=== PATIENT | male | born 1935 | race Two or more races ===

== ENCOUNTER 2021-05-13 12:57 | Emergency (ER) | payer BC, MEDICARE, OTHER ==
[~2021-05-13] VITALS: Ht 175.3 cm; Wt 72.6 kg
[~2021-05-13 12:57] MED LIST: LEVO25TA9
[2021-05-13 13:14] VITALS: BP 115/70
[2021-05-13] MEDS ORDERED: CEPH-509 PO (14:02)
[2021-05-13] MEDS ORDERED: TETANUS-DIPTH-ACEL PERTUSSIS 0.5ML SYR Tdap IM ONE (14:15)
== END 2021-05-13 14:11 | disposition home or self-care (01) ==
LOC: ER 12:57
DX: S71.112A Laceration without foreign body, left thigh, initial encounter (principal); I10 Essential (primary) hypertension; W26.8XXA Contact with other sharp object(s), not elsewhere classified, initial encounter; Y93.89 Activity, other specified; Y92.89 Other specified places as the place of occurrence of the external cause; Y99.8 Other external cause status
CPT/HCPCS: 12032; 90471; 90715; 99284; J2001

== ENCOUNTER 2021-05-22 09:03 | Emergency (ER) | payer MEDICARE ==
[~2021-05-22] VITALS: Ht 172.7 cm; Wt 63.5 kg
[~2021-05-22 09:03] MED LIST changes: +CEPH-509 PO
[2021-05-22 09:26] VITALS: BP 123/66
[2021-05-22] MEDS ORDERED: CEPH500C PO (09:27)
== END 2021-05-22 09:43 | disposition home or self-care (01) ==
LOC: ER 09:03
DX: S71.112D Laceration without foreign body, left thigh, subsequent encounter (principal); I10 Essential (primary) hypertension; E03.9 Hypothyroidism, unspecified; Z79.899 Other long term (current) drug therapy; W26.8XXD Contact with other sharp object(s), not elsewhere classified, subsequent encounter

== ENCOUNTER 2025-01-23 08:29 | Emergency (ER) | payer MEDICARE ==
[~2025-01-23] VITALS: Ht 170.2 cm; Wt 71.5 kg
[~2025-01-23 08:29] MED LIST changes: +CEPH500C PO
--- NOTE | 2025-01-23 09:06 | ED.PDOC ---
General HPI Comments A 89 YEAR OLD MALE PRESENTS TO THE ED WITH COMPLAINT OF PENILE IRRITATION. PATIENT STATES HE HAS BEEN EXPERIENCING PENILE IRRITATION AND REDNESS FOR THE PAST 2 DAYS. PATIENT NOTES THAT HE IS UNCIRCUMCISED. PATIENT DENIES DYSURIA, HEMATURIA, PENILE DISCHARGE, FEVER, CHILLS, SHORTNESS OF BREATH, CHEST PAIN, ABDOMINAL PAIN, NAUSEA, VOMITING, HEADACHE, OR OTHER COMPLAINTS. NO OTHER SYMPTOMS OR MODIFYING FACTORS AT THIS TIME. PATIENT IS ALERT, ORIENTED X 4, AND HAS STEADY GAIT. Chief Complaint: Penile Problem Time Seen by MD: 08:43 Primary Care Provider: RUBEN Reviewed notes: Nurses Notes, Medications, Allergies Allergies: Coded Allergies: NO KNOWN ALLERGIES (Unverified , 01/19/11) Home Meds Active Scripts Cephalexin Monohydrate (Cephalexin) 500 Mg Cap, 1 CAP PO TID, #30 CAP Prov:MARIBEL FRIAS 01/23/25 Ketoconazole (Ketoconazole) 2 % Cre, 1 APPLIC TOP BID, #30 GRAMS Prov:MARIBEL FRIAS 01/23/25 Cephalexin Monohydrate (Cephalexin) 500 Mg Cap, 1 CAP PO QID for 7 Days, #28 CAP Prov:MARIBEL FRIAS 05/22/21 Cephalexin (KEFLEX 500) 500 Mg Cap, 1 CAP PO TID, #30 CAP Prov:MARIBEL FRIAS 05/13/21 Reported Medications Levothyroxine Sodium (Levothroid) 25 Mcg Tab, DAILY 01/19/11 Information Source: Patient Mode of Arrival: Ambulatory Severity: Mild Timing: Days Duration: Since onset, Days Prehospital treatment: None Onset: Spontaneous Symptoms: Other (PENILE IRRITATION) History of: None Location: None Penile discharge: None Modifying factors: None associated signs and symptoms: None Past Medical History PAST MEDICAL HISTORY: HTN, Thyroid Surgical History: Denies all surgeries Family History Family History: Reviewed,noncontributory to illness Social History Smoker: Non-Smoker Alcohol: Denies ETOH Use Drugs: Denies Drug Use Lives In: Home Constitutional: denies: chills, diaphoresis, fatigue, fever, malaise, sweats, weakness, others EENTM: denies: blurred vision, double vision, ear bleeding, ear discharge, ear drainage, ear pain, ear ringing, eye pain, eye redness, hearing loss, mouth pain, mouth swelling, nasal discharge, nose bleeding, nose congestion, nose pain, photophobia, tearing, throat pain, throat swelling, voice changes, others Respiratory: denies: cough, hemoptysis, orthopnea, SOB at rest, shortness of breath, SOB with excertion, stridor, wheezing, others Cardiovascular: denies: chest pain, dizzy spells, diaphoresis, Dyspnea on exertion, edema, irregular heart beat, left arm pain, lightheadedness, palpitations, PND, syncope, others Gastrointestinal: denies: abdomen distended, abdominal pain, blood streaked bowels, constipated, diarrhea, dysphagia, difficulty swallowing, hematemesis, melena, nausea, poor appetite, poor fluid intake, rectal bleeding, rectal pain, vomiting, others Genitourinary: reports: penile sore, others (PENILE IRRITATION AND REDNESS); denies: burning, dysuria, flank pain, frequency, hematuria, incontinence, penile discharge, pain, testicle pain, testicle swelling, urgency Neurological: denies: dizziness, fainting, headache, left sided numbness, left sided weakness, numbness, paresthesia, pre-existing deficit, right sided numbness, right sided weakness, seizure, speech problems, tingling, tremors, weakness, others Musculoskeletal: denies: back pain, gout, joint pain, joint swelling, muscle pain, muscle stiffness, neck pain, others Integumetry: denies: bruises, change in color, change in hair/nails, dryness, laceration, lesions, lumps, rash, wounds, others Allergic/Immunocompromised: denies: Difficulty Healing, Frequent Infections, Hives, Itching, others Hematologic/Lymphatic: denies: anemia, blood clots, easy bleeding, easy bruising, swollen glands, others Endocrine: denies: excessive hunger, excessive sweating, excessive thirst, excessive urination, flushing, intolerance to cold, intolerance to heat, unexplained weight gain, unexplained weight loss, others Psychiatric: denies: anxiety, bipolar disorder, depression, hopeless, panic disorder, schizophrenia, sleepless, suicidal, others All Other Systems: Reviewed and Negative Physical Exam General Appearance: No Apparent Distress, Normal HEENT: Normal ENT Inspection, PERRL/EOMI, Pharynx Normal, TMs Normal Neck: Full Range of Motion, Non-Tender, Normal, Normal Inspection Respiratory: Chest Non-Tender, Lungs Clear, No Accessory Muscle Use, No Respiratory Distress, Normal Breath Sounds Cardiovascular: No Edema, No JVD, No Murmur, No Gallop, Normal Peripheral Pulses, Regular Rate/Rhythm Breast Exam: Deferred Gastrointestinal: No Organomegaly, Non Tender, No Pulsatile Mass, Normal Bowel Sounds, Soft Genitalia: Penis (UNCIRCUMCISED PENIS WITH LOCALIZED REDNESS AND WHITE SKIN RASH, NO DISCHARGE AND TENDERNESS, +BALANITIS. ) Pelvic: Deferred Rectal: Deferred Extremities: No calf tenderness, Normal capillary refill, Normal inspection, Normal range of motion, Non-tender, No pedal edema Musculoskeletal : Apperance: Normal Neurologic: Alert, full roll inspector II-XII nml as Tested, No Motor Deficits, Normal Affect, Normal Mood, No Sensory Deficits Cerebellar Function: Normal Reflexes: Normal Skin: Dry, Normal Color, Warm Peripheral Pulses: 2+ carotid (R), 2+ carotid (L), 2+ dorsalis pedis (R), 2+ dorsalis pedis (L) Lymphatic: No Adenopathy Was a procedure done? Was a procedure done?: No Differential Diagnosis Kidney stone (Female): N/A Kidney stone (Male): N/A Penile/Scrotal: Other (BALANITIS, PENILE IRRITATION) Urinary Problem (Male): N/A Urinary Problem (Female): N/A X-Ray, Labs, Meds, VS Vital Signs Date Time Temp Pulse Resp B/P (MAP) Pulse Ox O2 Delivery O2 Flow Rate FiO2 01/23/25 09:08 73 14 97 Room Air 01/23/25 09:08 97.6 73 14 130/81 (97) 97 97.6 01/23/25 08:30 97.6 73 14 130/81 97 97.6 X-Ray, Labs, Meds, VS Comment EXTERNAL MEDICAL RECORDS REVIEWED: [NONE] INDEPENDENT HISTORIANS: [NONE] SOCIAL DETERMINANTS OF HEALTH: [NONE] LABS ORDERED: NONE REVIEWED AND INTERPRETED RESULTS: NONE IMAGING ORDERED: NONE TREATMENTS ORDERED: NONE PROCEDURES PERFORMED: NONE CRITICAL CARE TIME: NONE I HAVE DISCUSSED THE PATIENT WITH THE ATTENDING PHYSICIAN DR. MACHADO AND HE AGREES WITH THE PATIENT'S PLAN OF CARE AND DISPOSITION. BASED ON HISTORY OF PRESENT ILLNESS, AND PHYSICAL EXAM, PATIENT WILL BE DISCHARGED HOME. DISCUSSED PLAN FOR DISCHARGE HOME WITH RX [KEFLEX AND NIZORAL CREAM]. MEDICATION WARNINGS GIVEN. SHARED DECISION MAKING: PATIENT INSTRUCTED TO FOLLOW UP WITH PRIMARY CARE PROVIDER IN 1-2 DAYS FOR RE-EVALUATION OF SYMPTOMS. PATIENT VERBALIZES UNDERSTANDING TO RETURN TO ED FOR NEW OR WORSENING SYMPTOMS OR IF FOLLOW UP WITH PCP CANNOT BE OBTAINED. PATIENT FEELS COMFORTABLE GOING HOME AT THIS TIME. ALL QUESTIONS ADDRESSED AT TIME OF DISCHARGE. Time of 1ST Reevaluation: 09:38 Reevaluation 1ST: Improved Patient Education/Counseling: Diagnosis, Treatment, Need For Follow Up Family Education/Counseling: Diagnosis, Treatment, Need For Follow Up Medical Screening: No EMC Exist At This Time SEPSIS Sepsis Screen Date sepsis recognized/suspect: Jan 23, 2025 Time Sepsis recognized/suspect: 0834 Recent Procedure: No On Antibiotic Therapy: No Respiratory Rate >20: No Heart Rate >90: No Temp<36 C (96.8 F) or >38.3 C: No SBP <90 or MAP <65 mmHG: No New Acute Mental Status Change: No Is the patient on CPAP, BIPAP,: No Vital Signs Date Time Temp Pulse Resp B/P (MAP) Pulse Ox O2 Delivery O2 Flow Rate FiO2 01/23/25 09:08 73 14 97 Room Air 01/23/25 09:08 97.6 73 14 130/81 (97) 97 97.6 01/23/25 08:30 97.6 73 14 130/81 97 97.6 Departure 1 Departure Time of Disposition: 09:38 Impression: Primary Impression: Candidal balanitis Disposition: 01 HOME / SELF CARE / HOMELESS Condition: Stable Additional Instructions: FOLLOW-UP WITH PCP IN 1 TO 2 DAYS. TAKE MEDICATIONS PRESCRIBED. RETURN TO ED FOR ANY NEW OR WORSENING SYMPTOMS. e-Prescriptions Cephalexin Monohydrate (Cephalexin) 500 Mg Cap 1 CAP PO TID, #30 CAP Prov: MARIBEL FRIAS 01/23/25 Ketoconazole (Ketoconazole) 2 % Cre 1 APPLIC TOP BID, #30 GRAMS Prov: MARIBEL FRIAS 01/23/25 Discharged With: Self Critical Care Note Critical Care Time?: No Stability Stability form required: No I personally scribed for MARIBEL FRIAS ([email or web address]) on 01/23/25 at 09:06. Electronically submitted by John Morgan ([email or web address]). MARIBEL FRIAS Jan 23, 2025 09:06
[2025-01-23 09:08] VITALS: BP 130/81; PULSE 73; RESP 14; TEMP 97.6; O2SAT 97
[2025-01-23] MEDS ORDERED: CEPH500C PO (09:08)
[2025-01-23] MEDS ORDERED: KETO2CRE4 TOP (09:08)
== END 2025-01-23 09:12 | disposition home or self-care (01) ==
LOC: ER 08:29
DX: B37.42 Candidal balanitis (principal); I10 Essential (primary) hypertension; Z79.899 Other long term (current) drug therapy; Z79.890 Hormone replacement therapy

== ENCOUNTER 2025-02-07 08:42 | Emergency (ER) | payer MEDICARE ==
[~2025-02-07] VITALS: Ht 165.1 cm; Wt 69.4 kg
[~2025-02-07 08:42] MED LIST changes: +KETO2CRE4 TOP
[2025-02-07 09:25] VITALS: BP 141/70; PULSE 77; RESP 16; TEMP 98.1; O2SAT 98
[2025-02-07] MEDS ORDERED: TRIA0.02 TOP (09:30)
--- NOTE | 2025-02-07 09:32 | ED.PDOC ---
History of Present Illness(SKN HPI Comments A 89 YEAR OLD MALE PRESENTS TO THE ED WITH COMPLAINT OF RASH OF BILATERAL INNER THIGHS. PATIENT STATES HE HAS BEEN EXPERIENCING A RASH IN HIS BILATERAL INNER THIGHS FOR THE PAST 2.5 WEEKS. PATIENT REPORTS THIS RASH OCCASIONALLY ITCHES, BUT NOT TOO OFTEN. PATIENT DENIES FEVER, CHILLS, SHORTNESS OF BREATH, CHEST PAIN, ABDOMINAL PAIN, NAUSEA, VOMITING, HEADACHE, OR OTHER COMPLAINTS. NO OTHER SYMPTOMS OR MODIFYING FACTORS AT THIS TIME. PATIENT IS ALERT, ORIENTED X 4, AND HAS STEADY GAIT. Chief Complaint: Rash Time Seen by MD: 08:50 Primary Care Provider: RUBEN History of Present Illness: Nurses Notes, Medications, Allergies Allergies: Coded Allergies: NO KNOWN ALLERGIES (Unverified , 01/19/11) Home Meds Active Scripts Triamcinolone Acetonide (Triamcinolone Acetonide) 0.025 % Cre, 1 APPLIC TOP BID, #60 GRAMS Prov:MARIBEL FRIAS 02/07/25 Cephalexin Monohydrate (Cephalexin) 500 Mg Cap, 1 CAP PO TID, #30 CAP Prov:MARIBEL FRIAS 01/23/25 Ketoconazole (Ketoconazole) 2 % Cre, 1 APPLIC TOP BID, #30 GRAMS Prov:MARIBEL FRIAS 01/23/25 Cephalexin Monohydrate (Cephalexin) 500 Mg Cap, 1 CAP PO QID for 7 Days, #28 CAP Prov:MARIBEL FRIAS 05/22/21 Cephalexin (KEFLEX 500) 500 Mg Cap, 1 CAP PO TID, #30 CAP Prov:MARIBEL FRIAS 05/13/21 Reported Medications Levothyroxine Sodium (Levothroid) 25 Mcg Tab, DAILY 01/19/11 Information Source: Patient Mode of Arrival: Ambulatory Severity: Mild Timing: Days, Weeks Duration: Since onset Prehospital treatment: None Location: Leg (BILATERAL INNER THIGHS) Mechanism: Spontaneous Onset Developed: Rash Occurence: Indoors Object: None Condition of Object: None Retained Foreign Body: No Wound Type: None Immunization Status of Animal: NA Tetanus: Unknown History of: None Associated Signs and Symptoms: Redness Past Medical History PAST MEDICAL HISTORY: HTN, Thyroid Surgical History: Denies all surgeries Family History Family History: Reviewed,noncontributory to illness Social History Smoker: Non-Smoker Alcohol: Denies ETOH Use Drugs: Denies Drug Use Lives In: Home Constitutional: denies: chills, diaphoresis, fatigue, fever, malaise, sweats, weakness, others EENTM: denies: blurred vision, double vision, ear bleeding, ear discharge, ear drainage, ear pain, ear ringing, eye pain, eye redness, hearing loss, mouth pain, mouth swelling, nasal discharge, nose bleeding, nose congestion, nose pain, photophobia, tearing, throat pain, throat swelling, voice changes, others Respiratory: denies: cough, hemoptysis, orthopnea, SOB at rest, shortness of breath, SOB with excertion, stridor, wheezing, others Cardiovascular: denies: chest pain, dizzy spells, diaphoresis, Dyspnea on exertion, edema, irregular heart beat, left arm pain, lightheadedness, palpitat ions, PND, syncope, others Gastrointestinal: denies: abdomen distended, abdominal pain, blood streaked bow els, constipated, diarrhea, dysphagia, difficulty swallowing, hematemesis, melena, nausea, poor appetite, poor fluid intake, rectal bleeding, rectal pain, vomiting, others Genitourinary: denies: burning, dysuria, flank pain, frequency, hematuria, incontinence, penile discharge, penile sore, pain, testicle pain, testicle swelling, urgency, others Neurological: denies: dizziness, fainting, headache, left sided numbness, left sided weakness, numbness, paresthesia, pre-existing deficit, right sided numbness, right sided weakness, seizure, speech problems, tingling, tremors, weakness, others Musculoskeletal: denies: back pain, gout, joint pain, joint swelling, muscle pain, muscle stiffness, neck pain, others Integumetry: reports: rash (RASH OF BILATERAL INNER THIGH); denies: bruises, change in color, change in hair/nails, dryness, laceration, lesions, lumps, wounds, others Allergic/Immunocompromised: reports: Itching; denies: Difficulty Healing, Frequent Infections, Hives, others Hematologic/Lymphatic: denies: anemia, blood clots, easy bleeding, easy bruising, swollen glands, others Endocrine: denies: excessive hunger, excessive sweating, excessive thirst, excessive urination, flushing, intolerance to cold, intolerance to heat, unexplained weight gain, unexplained weight loss, others Psychiatric: denies: anxiety, bipolar disorder, depression, hopeless, panic disorder, schizophrenia, sleepless, suicidal, others All Other Systems: Reviewed and Negative Physical Exam General Appearance: No Apparent Distress, Normal HEENT: Normal ENT Inspection, PERRL/EOMI, Pharynx Normal, TMs Normal Neck: Full Range of Motion, Non-Tender, Normal, Normal Inspection Respiratory: Chest Non-Tender, Lungs Clear, No Accessory Muscle Use, No Respiratory Distress, Normal Breath Sounds Cardiovascular: No Edema, No JVD, No Murmur, No Gallop, Normal Peripheral Pulses, Regular Rate/Rhythm Breast Exam: Deferred Gastrointestinal: No Organomegaly, Non Tender, No Pulsatile Mass, Normal Bowel Sounds, Soft Genitalia: Deferred Pelvic: Deferred Rectal: Deferred Extremities: No calf tenderness, Normal capillary refill, Normal inspection, Normal range of motion, Non-tender, No pedal edema Musculoskeletal : Apperance: Normal Neurologic: Alert, fiber product cutting machine operator II-XII nml as Tested, No Motor Deficits, Normal Affect, Normal Mood, No Sensory Deficits Cerebellar Function: Normal Reflexes: Normal Skin: Dry, Rash (PAPULAR AND MACULAR SKIN RASH ON BILATERAL THIGHS, NPO TENDERNESS AND SWELLING. ), Warm Peripheral Pulses: 2+ carotid (R), 2+ carotid (L) Lymphatic: No Adenopathy Was a procedure done? Was a procedure done?: No Differential Diagnosis (INTG) Differential Diagnosis: N/A Differential Diagnosis: Atopic dermatitis, Contact Dermatitis, Impetigo, Intertrigo, Tinea, Urticaria Differential Diagnosis: N/A Abscess: N/A Differential Diagnosis: N/A X-Ray, Labs, Meds, VS Vital Signs Date Time Temp Pulse Resp B/P (MAP) Pulse Ox O2 Delivery O2 Flow Rate FiO2 02/07/25 09:25 98.1 77 16 141/70 (93) 98 98.1 02/07/25 08:45 98.2 77 15 141/79 98 98.2 X-Ray, Labs, Meds, VS Comment EXTERNAL MEDICAL RECORDS REVIEWED: [NONE] INDEPENDENT HISTORIANS: [NONE] SOCIAL DETERMINANTS OF HEALTH: [NONE] LABS ORDERED: NONE REVIEWED AND INTERPRETED RESULTS: NONE IMAGING ORDERED: NONE TREATMENTS ORDERED: NONE PROCEDURES PERFORMED: NONE CRITICAL CARE TIME: NONE I HAVE DISCUSSED THE PATIENT WITH THE ATTENDING PHYSICIAN DR. FENSTER AND SHE AGREES WITH THE PATIENT'S PLAN OF CARE AND DISPOSITION. BASED ON HISTORY OF PRESENT ILLNESS, AND PHYSICAL EXAM, PATIENT WILL BE DISCHARGED HOME. DISCUSSED PLAN FOR DISCHARGE HOME WITH RX [TRIAMCINOLONE CREAM]. MEDICATION WARNINGS GIVEN. SHARED DECISION MAKING: PATIENT INSTRUCTED TO FOLLOW UP WITH PRIMARY CARE PROVIDER IN 1-2 DAYS FOR RE-EVALUATION OF SYMPTOMS. PATIENT VERBALIZES UNDERSTANDING TO RETURN TO ED FOR NEW OR WORSENING SYMPTOMS OR IF FOLLOW UP WITH PCP CANNOT BE OBTAINED. PATIENT FEELS COMFORTABLE GOING HOME AT THIS TIME. ALL QUESTIONS ADDRESSED AT TIME OF DISCHARGE. Time of 1ST Reevaluation: 09:48 Reevaluation 1ST: Improved Patient Education/Counseling: Diagnosis, Treatment, Need For Follow Up Family Education/Counseling: Diagnosis, Treatment, Need For Follow Up Medical Screening: No EMC Exist At This Time SEPSIS Sepsis Screen Date sepsis recognized/suspect: Feb 07, 2025 Time Sepsis recognized/suspect: 844 Recent Procedure: No On Antibiotic Therapy: No Respiratory Rate >20: No Heart Rate >90: No Temp<36 C (96.8 F) or >38.3 C: No SBP <90 or MAP <65 mmHG: No New Acute Mental Status Change: No Is the patient on CPAP, BIPAP,: No Vital Signs Date Time Temp Pulse Resp B/P (MAP) Pulse Ox O2 Delivery O2 Flow Rate FiO2 02/07/25 09:25 98.1 77 16 141/70 (93) 98 98.1 02/07/25 08:45 98.2 77 15 141/79 98 98.2 Departure 1 Departure Time of Disposition: 09:48 Impression: Primary Impression: Contact dermatitis Qualified Codes: L24.9 - Irritant contact dermatitis, unspecified cause Disposition: 01 HOME / SELF CARE / HOMELESS Condition: Stable Additional Instructions: FOLLOW-UP WITH PCP IN 1 TO 2 DAYS. TAKE MEDICATIONS PRESCRIBED. RETURN TO ED FOR ANY NEW OR WORSENING SYMPTOMS. e-Prescriptions Triamcinolone Acetonide (Triamcinolone Acetonide) 0.025 % Cre 1 APPLIC TOP BID, #60 GRAMS Prov: MARIBEL FRIAS 02/07/25 Discharged With: Self Critical Care Note Critical Care Time?: No Stability Stability form required: No I personally scribed for MARIBEL FRIAS ([email or web address]) on 02/07/25 at 09:32. Electronically submitted by John Morgan ([email or web address]). MARIBEL FRIAS Feb 07, 2025 09:32
== END 2025-02-07 09:40 | disposition home or self-care (01) ==
LOC: ER 08:42
DX: L25.9 Unspecified contact dermatitis, unspecified cause (principal); I10 Essential (primary) hypertension; Z79.899 Other long term (current) drug therapy

== ENCOUNTER 2025-02-24 09:00 | Emergency (ER) | payer MEDICARE ==
[~2025-02-24] VITALS: Ht 162.6 cm; Wt 69.2 kg
[~2025-02-24 09:00] MED LIST changes: +TRIA0.02 TOP
[2025-02-24] MEDS ORDERED: CLOTCRE3 EX (09:43)
--- NOTE | 2025-02-24 09:46 | ED.PDOC ---
General HPI Comments This is a 89 year old male presenting to the ED with chief complaint of penile rash. Patient reports that he has been experiencing a rash to his penis for the past 3 weeks. Patient relays that his PCP had prescribed him Triamcinolone with minimal relief noted. Admits/denies change in morphology such as papules to vesicles Up-to-date on vaccines Denies that the rash is painful Denies ever having this before Patient denies any fever, cough, difficulty swallowing, or shortness of breath Denies fever chills night sweats nausea vomiting diarrhea Denies persistent loss of appetite nor unintentional weight loss over the past 3 months Denies history of STI Denies cough and cold-like symptoms Denies recent travel Denies sick contact with similar rash Denies new topical creams/lotions/shampoos/detergents Denies noticing any insects Denies bruising bleeding anywhere Denies chronic skin issues or family history of skin issues Chief Complaint: Lower Extremity Time Seen by MD: 09:44 Primary Care Provider: RUBEN Goodwin notes: Nurses Notes, Medications, Allergies Allergies: Coded Allergies: NO KNOWN ALLERGIES (Unverified , 01/19/11) Home Meds Active Scripts Clotrimazole W/ Betamethasone (Clotrimazole/Betamethason 1-0.05 %) 1 Cre Cre, 1 APPLIC EX BID for 5 Days, #30 GRAMS 0 Refills Prov:SUSIE TIERNEY NP 02/24/25 Triamcinolone Acetonide (Triamcinolone Acetonide) 0.025 % Cre, 1 APPLIC TOP BID, #60 GRAMS Prov:MARIBEL RFIAS 02/07/25 Cephalexin Monohydrate (Cephalexin) 500 Mg Cap, 1 CAP PO TID, #30 CAP Prov:MARIBEL FRIAS 01/23/25 Ketoconazole (Ketoconazole) 2 % Cre, 1 APPLIC TOP BID, #30 GRAMS Prov:MARIBEL FRIAS 01/23/25 Cephalexin Monohydrate (Cephalexin) 500 Mg Cap, 1 CAP PO QID for 7 Days, #28 CAP Prov:MARIBEL FRIAS 05/22/21 Cephalexin (KEFLEX 500) 500 Mg Cap, 1 CAP PO TID, #30 CAP Prov:MARIBEL FRIAS 05/13/21 Reported Medications Levothyroxine Sodium (Levothroid) 25 Mcg Tab, DAILY 01/19/11 Information Source: Patient Mode of Arrival: Ambulatory Severity: Moderate Inability to void: None Timing: Weeks Duration: Since onset Prehospital treatment: None Onset: Spontaneous Symptoms: None History of: None Location: None Penile discharge: None Modifying factors: None associated signs and symptoms: Rash Past Medical History PAST MEDICAL HISTORY: HTN, Thyroid Surgical History: Denies all surgeries Family History Family History: Reviewed,noncontributory to illness Social History Smoker: Non-Smoker Alcohol: Denies ETOH Use Drugs: Denies Drug Use Lives In: Home Constitutional: denies: chills, diaphoresis, fatigue, fever, malaise, sweats, weakness, others EENTM: denies: blurred vision, double vision, ear bleeding, ear discharge, ear drainage, ear pain, ear ringing, eye pain, eye redness, hearing loss, mouth pain, mouth swelling, nasal discharge, nose bleeding, nose congestion, nose pain, photophobia, tearing, throat pain, throat swelling, voice changes, others Respiratory: denies: cough, hemoptysis, orthopnea, SOB at rest, shortness of breath, SOB with excertion, stridor, wheezing, others Cardiovascular: denies: chest pain, dizzy spells, diaphoresis, Dyspnea on exertion, edema, irregular heart beat, left arm pain, lightheadedness, palpitations, PND, syncope, others Gastrointestinal: denies: abdomen distended, abdominal pain, blood streaked bowels, constipated, diarrhea, dysphagia, difficulty swallowing, hematemesis, melena, nausea, poor appetite, poor fluid intake, rectal bleeding, rectal pain, vomiting, others Genitourinary: denies: burning, dysuria, flank pain, frequency, hematuria, in continence, penile discharge, penile sore, pain, testicle pain, testicle swelling, urgency, others Neurological: denies: dizziness, fainting, headache, left sided numbness, left sided weakness, numbness, paresthesia, pre-existing deficit, right sided numbness, right sided weakness, seizure, speech problems, tingling, tremors, weakness, others Musculoskeletal: denies: back pain, gout, joint pain, joint swelling, muscle pain, muscle stiffness, neck pain, others Integumetry: reports: rash; denies: bruises, change in color, change in hair/nails, dryness, laceration, lesions, lumps, wounds, others Allergic/Immunocompromised: denies: Difficulty Healing, Frequent Infections, Hives, Itching, others Hematologic/Lymphatic: denies: anemia, blood clots, easy bleeding, easy bruising, swollen glands, others Endocrine: denies: excessive hunger, excessive sweating, excessive thirst, excessive urination, flushing, intolerance to cold, intolerance to heat, unexplained weight gain, unexplained weight loss, others Psychiatric: denies: anxiety, bipolar disorder, depression, hopeless, panic disorder, schizophrenia, sleepless, suicidal, others All Other Systems: Reviewed and Negative Physical Exam General Appearance: No Apparent Distress, Normal HEENT: Normal ENT Inspection, Pharynx Normal, TMs Normal Neck: Full Range of Motion, Non-Tender, Normal, Normal Inspection Respiratory: Chest Non-Tender, Lungs Clear, No Accessory Muscle Use, No Respiratory Distress, Normal Breath Sounds Cardiovascular: No Edema, No JVD, No Murmur, No Gallop, Normal Peripheral Pulses, Regular Rate/Rhythm Breast Exam: Deferred Gastrointestinal: No Organomegaly, Non Tender, No Pulsatile Mass, Normal Bowel Sounds, Soft Genitalia: Penis (Mild irritation and erythema to penile shaft, no discharge.) Pelvic: Deferred Rectal: Deferred Extremities: No calf tenderness, Normal capillary refill, Normal inspection, Normal range of motion, Non-tender, No pedal edema Musculoskeletal : Apperance: Normal Neurologic: Alert, video control engineer II-XII nml as Tested, No Motor Deficits, Normal Affect, Normal Mood, No Sensory Deficits Cerebellar Function: Normal Reflexes: Normal Skin: Dry, Normal Color, Warm Lymphatic: No Adenopathy Was a procedure done? Was a procedure done?: No Differential Diagnosis Kidney stone (Female): N/A Kidney stone (Male): N/A Penile/Scrotal: Other (Balanitis) X-Ray, Labs, Meds, VS Vital Signs Date Time Temp Pulse Resp B/P (MAP) Pulse Ox O2 Delivery O2 Flow Rate FiO2 02/24/25 09:58 98.2 83 16 122/76 (91) 96 98.2 02/24/25 09:58 83 17 96 Room Air 02/24/25 09:07 97.6 87 17 124/75 100 97.6 X-Ray, Labs, Meds, VS Comment This is a 89 year old male presenting to the ED with chief complaint of penile rash. Patient arrives alert and oriented, ABC's intact, afebrile, vital signs stable, saturating well in room air DIFFERENTIAL DIAGNOSIS: Symptoms consistent with balanoposthitis. Physiologic phimosis noted on exam but no evidence of obstructive uropathy. Pain well controlled and patient well hydrated Recommended sitz baths twice daily with bacitracin ointment three times a day to shaft and glans. Recommended oral antibiotic . Stressed importance of pulling foreskin back to normal position afterwards. If no improvement over the next week, then follow up with primary doctor. Return precautions discussed such as those associated with obstructive uropathy. IMPRESSION: Balanoposthitis PLAN: Discharge home in stable condition with continued outpatient evaluation with Primary Care Provider in 1 week if no improvement. Patient seen and evaluated in the emergency department today for balanitits. No signs of phimosis or paraphimosis. Additional MDM Review of External, Non-ED records: External records reviewed. Discussion with independent historian (EMS, family) history obtained from the patient/parents (if applicable) at bedside Chronic conditions affecting care: None Social determinants of health affecting care: None Consideration of admission (observation or admission): I considered escalation of care to admission for this patient, however given the reassuring workup, the patient is safe for outpatient management. Discussion with the Radiology: No Tests considered but not performed: None Prescription medication considered but not given: None On reevaluation, patient had symptomatic improvement. Patient is stable for discharge at this time. External notes reviewed. Test results and diagnostic imaging interpreted. All diagnostic findings, discharge care, education and instructions provided Follow-up with PCP in 2 to 3 days Patient verbalized understanding and agreed to treatment plan Vital signs stable, afebrile, no acute distress noted Patient ambulatory with strong steady gait Advised to return precautions for any new or worsening symptoms, return to ER immediately for re-evaluation Patient is aware that the purpose of this visit was for an acute medical emergency requiring emergent stabilization. Chronic conditions, including malignancies have not been ruled out. Patient is instructed to follow up with PCP as directed and discharge instructions for continued care and workup. If unable to arrange follow-up, patient is to return to the emergency department for reassessment. Patient (parent or legal guardian if applicable) was given verbal and written discharge instructions and acknowledges understanding. Time of 1ST Reevaluation: 09:45 Reevaluation 1ST: Improved Patient Education/Counseling: Diagnosis, Treatment Family Education/Counseling: No Family Present SEPSIS Sepsis Screen Date sepsis recognized/suspect: Feb 24, 2025 Time Sepsis recognized/suspect: 906 Recent Procedure: No On Antibiotic Therapy: No Respiratory Rate >20: No Heart Rate >90: No Temp<36 C (96.8 F) or >38.3 C: No SBP <90 or MAP <65 mmHG: No New Acute Mental Status Change: No Is the patient on CPAP, BIPAP,: No Vital Signs Date Time Temp Pulse Resp B/P (MAP) Pulse Ox O2 Delivery O2 Flow Rate FiO2 02/24/25 09:58 98.2 83 16 122/76 (91) 96 98.2 02/24/25 09:58 83 17 96 Room Air 02/24/25 09:07 97.6 87 17 124/75 100 97.6 Departure 1 Departure Time of Disposition: 09:50 Impression: Primary Impression: Jayna Disposition: 01 HOME / SELF CARE / HOMELESS Condition: Stable e-Prescriptions Clotrimazole W/ Betamethasone (Clotrimazole/Betamethason 1-0.05 %) 1 Cre Cre 1 APPLIC EX BID for 5 Days, #30 GRAMS 0 Refills Prov: SUSIE TIERNEY NP 02/24/25 Discharged With: Self Critical Care Note Critical Care Time?: No Stability Stability form required: No Heart Score Heart Score: Heart Score Response (Comments) Value History N/A 0 EKG N/A 0 Age N/A 0 Risk Factors N/A 0 Troponin N/A 0 Total 0 I personally scribed for SUSIE TIERNEY NP ([email or web address]) on 02/24/25 at 09:46. Electronically submitted by Franco Denson ([email or web address]). SUSIE TIERNEY NP Feb 24, 2025 09:46
[2025-02-24 09:58] VITALS: BP 122/76; PULSE 83; RESP 17; TEMP 98.2; O2SAT 96
== END 2025-02-24 10:00 | disposition home or self-care (01) ==
LOC: ER 09:00
DX: N47.6 Balanoposthitis (principal); I10 Essential (primary) hypertension; E03.9 Hypothyroidism, unspecified; Z79.890 Hormone replacement therapy; Z79.899 Other long term (current) drug therapy

== ENCOUNTER 2025-03-31 08:51 | Emergency (ER) | payer MEDICARE ==
[~2025-03-31] VITALS: Ht 167.6 cm; Wt 68.4 kg
[~2025-03-31 08:51] MED LIST changes: +CLOTCRE3 EX
[2025-03-31 08:53] VITALS: BP 139/70; PULSE 64; RESP 15; TEMP 97.6; O2SAT 99
== END 2025-03-31 10:07 | disposition left against medical advice (07) ==
LOC: ER 08:54
DX: R21 Rash and other nonspecific skin eruption (principal); Z79.899 Other long term (current) drug therapy

== ENCOUNTER 2025-03-31 11:26 | Emergency (ER) | payer MEDICARE ==
[~2025-03-31] VITALS: Ht 167.6 cm; Wt 68.0 kg
[2025-03-31 11:29] VITALS: BP 106/61; PULSE 64; RESP 15; TEMP 97.6; O2SAT 97
--- NOTE | 2025-03-31 11:41 | ED.PDOC ---
General HPI Comments This is a 89 year old male presenting to the ED with chief complaint of penile pain. Patient reports that he has been experiencing pain underneath his foreskin for the past 2-3 weeks. Patient denies any dysuria, hematuria, abdominal pain, or penile discharge. Patient with no abnormal penile lesion. States he is not sexually active currently. Chief Complaint: Penile Problem Time Seen by MD: 11:39 Primary Care Provider: RUBEN Goodwin notes: Nurses Notes, Medications, Allergies Allergies: Coded Allergies: NO KNOWN ALLERGIES (Unverified , 01/19/11) Home Meds Active Scripts Clotrimazole W/ Betamethasone (Clotrimazole/Betamethason 1-0.05 %) 1 Cre Cre, 1 APPLIC EX BID for 5 Days, #30 GRAMS 0 Refills Prov:SUSIE TIERNEY NP 02/24/25 Triamcinolone Acetonide (Triamcinolone Acetonide) 0.025 % Cre, 1 APPLIC TOP BID, #60 GRAMS Prov:MARIBEL FRIAS 02/07/25 Cephalexin Monohydrate (Cephalexin) 500 Mg Cap, 1 CAP PO TID, #30 CAP Prov:MARIBEL FRIAS 01/23/25 Ketoconazole (Ketoconazole) 2 % Cre, 1 APPLIC TOP BID, #30 GRAMS Prov:MARIBEL FRIAS 01/23/25 Cephalexin Monohydrate (Cephalexin) 500 Mg Cap, 1 CAP PO QID for 7 Days, #28 CAP Prov:MARIBEL FRIAS 05/22/21 Cephalexin (KEFLEX 500) 500 Mg Cap, 1 CAP PO TID, #30 CAP Prov:MARIBEL FRIAS 05/13/21 Reported Medications Levothyroxine Sodium (Levothroid) 25 Mcg Tab, DAILY 01/19/11 Information Source: Patient Mode of Arrival: Ambulatory Severity: Mild Inability to void: None Timing: Weeks Duration: Since onset Prehospital treatment: None Onset: Spontaneous Symptoms: None History of: None Location: None Past Medical History PAST MEDICAL HISTORY: HTN, Thyroid Surgical History: Denies all surgeries Family History Family History: Reviewed,noncontributory to illness Social History Smoker: Non-Smoker Alcohol: Denies ETOH Use Drugs: Denies Drug Use Lives In: Home Constitutional: denies: chills, diaphoresis, fatigue, fever, malaise, sweats, weakness, others EENTM: denies: blurred vision, double vision, ear bleeding, ear discharge, ear drainage, ear pain, ear ringing, eye pain, eye redness, hearing loss, mouth pain, mouth swelling, nasal discharge, nose bleeding, nose congestion, nose pain, photophobia, tearing, throat pain, throat swelling, voice changes, others Respiratory: denies: cough, hemoptysis, orthopnea, SOB at rest, shortness of breath, SOB with excertion, stridor, wheezing, others Cardiovascular: denies: chest pain, dizzy spells, diaphoresis, Dyspnea on exertion, edema, irregular heart beat, left arm pain, lightheadedness, palpitations, PND, syncope, others Gastrointestinal: denies: abdomen distended, abdominal pain, blood streaked bowels, constipated, diarrhea, dysphagia, difficulty swallowing, hematemesis, melena, nausea, poor appetite, poor fluid intake, rectal bleeding, rectal pain, vomiting, others Genitourinary: reports: others (Penile pain); denies: burning, dysuria, flank pain, frequency, hematuria, incontinence, penile discharge, penile sore, pain, testicle pain, testicle swelling, urgency Neurological: denies: dizziness, fainting, headache, left sided numbness, left sided weakness, numbness, paresthesia, pre-existing deficit, right sided numbness, right sided weakness, seizure, speech problems, tingling, tremors, weakness, others Musculoskeletal: denies: back pain, gout, joint pain, joint swelling, muscle pain, muscle stiffness, neck pain, others Integumetry: denies: bruises, change in color, change in hair/nails, dryness, laceration, lesions, lumps, rash, wounds, others Allergic/Immunocompromised: denies: Difficulty Healing, Frequent Infections, Hives, Itching, others Hematologic/Lymphatic: denies: anemia, blood clots, easy bleeding, easy bruising, swollen glands, others Endocrine: denies: excessive hunger, excessive sweating, excessive thirst, excessive urination, flushing, intolerance to cold, intolerance to heat, unexplained weight gain, unexplained weight loss, others Psychiatric: denies: anxiety, bipolar disorder, depression, hopeless, panic disorder, schizophrenia, sleepless, suicidal, others All Other Systems: Reviewed and Negative Physical Exam General Appearance: No Apparent Distress, Normal HEENT: Normal ENT Inspection, Pharynx Normal, TMs Normal Neck: Full Range of Motion, Non-Tender, Normal, Normal Inspection Respiratory: Chest Non-Tender, Lungs Clear, No Accessory Muscle Use, No Respiratory Distress, Normal Breath Sounds Cardiovascular: No Edema, No JVD, No Murmur, No Gallop, Normal Peripheral Pulses, Regular Rate/Rhythm Breast Exam: Deferred Gastrointestinal: No Organomegaly, Non Tender, No Pulsatile Mass, Normal Bowel Sounds, Soft Genitalia: Deferred (Patient with no abnormal penile lesions, no erythema, warmth, swelling of the foreskin, foreskin is retractable with no issues, no abnormal penile discharge) Pelvic: Deferred Rectal: Deferred Extremities: No calf tenderness, Normal capillary refill, Normal inspection, Normal range of motion, Non-tender, No pedal edema Musculoskeletal : Apperance: Normal Neurologic: Alert, senior construction estimator II-XII nml as Tested, No Motor Deficits, Normal Affect, Normal Mood, No Sensory Deficits Cerebellar Function: Normal Reflexes: Normal Skin: Dry, Normal Color, Warm Lymphatic: No Adenopathy Was a procedure done? Was a procedure done?: No Differential Diagnosis Kidney stone (Female): N/A Penile/Scrotal: UTI X-Ray, Labs, Meds, VS Vital Signs Date Time Temp Pulse Resp B/P (MAP) Pulse Ox O2 Delivery O2 Flow Rate FiO2 03/31/25 11:29 97.6 64 15 106/61 97 97.6 Time of 1ST Reevaluation: 12:39 Reevaluation 1ST: Improved Patient Education/Counseling: Diagnosis, Treatment Family Education/Counseling: No Family Present SEPSIS Sepsis Screen Date sepsis recognized/suspect: Mar 31, 2025 Time Sepsis recognized/suspect: 113 Recent Procedure: No On Antibiotic Therapy: No Respiratory Rate >20: No Heart Rate >90: No Temp<36 C (96.8 F) or >38.3 C: No SBP <90 or MAP <65 mmHG: No New Acute Mental Status Change: No Is the patient on CPAP, BIPAP,: No Physician Orders Urinalysis (03/31/25 11:36) Vital Signs Date Time Temp Pulse Resp B/P (MAP) Pulse Ox O2 Delivery O2 Flow Rate FiO2 03/31/25 11:29 97.6 64 15 106/61 97 97.6 Departure 1 Departure Time of Disposition: 15:11 (Patient reporting some discomfort near the penile head. Has no abnormal penile lesions, is not currently sexually active, does not seem concerning for syphilis chancroid. Foreskin is retractable, does not appear inflamed, no findings concerning for paraphimosis or phimosis. Has no abnormal discharge noted near the penis, no findings concerning for balanitis at this time. Is not currently sexually active, not concerning for urethritis. Patient has normal exam. Offered to perform a urinalysis. However, it appears that the patient eloped prior to providing a urine sample.) Impression: Primary Impression: Penile pain Disposition: LEFT AWOL/ELOPED Condition: Stable Critical Care Note Critical Care Time?: No Stability Stability form required: No Heart Score Heart Score: Heart Score Response (Comments) Value History N/A 0 EKG N/A 0 Age N/A 0 Risk Factors N/A 0 Troponin N/A 0 Total 0 I personally scribed for JUDY SEPULVEDA MD ([email or web address]) on 03/31/25 at 11:41. Electronically submitted by Franco Denson ([email or web address]). JUDY SEPULVEDA MD Mar 31, 2025 11:41
== END 2025-03-31 13:28 | disposition left against medical advice (07) ==
LOC: ER 11:26
DX: N48.89 Other specified disorders of penis (principal); I10 Essential (primary) hypertension; Z79.899 Other long term (current) drug therapy